=== PATIENT | female | born 1990 | race Caucasian/White ===

== ENCOUNTER 2022-07-03 05:02 | Inpatient (IN) | payer BC ==
[~2022-07-03 05:02] MED LIST: Sodium Chloride 0.9% 10 ML Syringe FLUSH PRN
[2022-07-03] MEDS: Lactated Ringers 1,000 ML IV SCH ×2 (05:45→06:38)
[2022-07-03] MEDS ORDERED: Citric Acid/Sodium Citrate Solution 30 ML Cup PO ONE (06:30)
[2022-07-03] MEDS ORDERED: Metoclopramide 10 MG/2 ML SDV IVPUSH ONE (06:30)
[2022-07-03] MEDS ORDERED: ceFAZolin 2 GM in Sodium Chloride 0.9% 50 ML IV ONE (07:00)
[2022-07-03] MEDS ORDERED: Oxytocin 10 Units/1 ML SDV ONE (07:08)
[2022-07-03] MEDS ORDERED: Morphine PF 1 MG/ML Amp ONE (07:08)
[2022-07-03] MEDS ORDERED: ePHEDrine 50 MG/ML SDV ONE (07:08)
[2022-07-03] MEDS ORDERED: Sodium Chloride 0.9% 50 ML SDV ONE (07:11)
[2022-07-03] MEDS ORDERED: Oxytocin/Lactated Ringers 10 UNIT/1,000 ML BAG IV SCH (07:30)
[2022-07-03] MEDS ORDERED: Phenylephrine 1% 10 MG/ML SDV ONE (07:39)
[2022-07-03] MEDS ORDERED: ceFAZolin 2 GM Vial ONE (07:44)
[2022-07-03] MEDS ORDERED: Ketorolac 30 MG/ML SDV ONE (08:06)
[2022-07-03] MEDS ORDERED: diphenhydrAMINE 50 MG/ML SDV IVPUSH PRN ×2 (08:12→10:40)
[2022-07-03] MEDS ORDERED: fentaNYL 100 MCG/2 ML SDV IVPUSH PRN (08:12)
[2022-07-03] MEDS ORDERED: Ondansetron 4 MG/2 ML SDV IVPUSH PRN (08:12)
[2022-07-03] MEDS ORDERED: Ondansetron 4 MG/2 ML SDV IV PRN (10:40)
[2022-07-03] MEDS ORDERED: Dextrose 5%-Lactated Ringers 1,000 ML IV SCH (10:40)
[2022-07-03] MEDS ORDERED: ePHEDrine 50 MG/ML SDV IVPUSH PRN (10:40)
[2022-07-03] MEDS ORDERED: Naloxone 0.4 MG/ML SDV IVPUSH PRN (10:40)
[2022-07-03] MEDS ORDERED: Docusate Sodium 100 MG Cap PO PRN (10:40)
[2022-07-03] MEDS: Pantoprazole 40 MG Tab.CR PO SCH (12:31)
[2022-07-03] MEDS: Prenatal Multivitamin with Calcium/Folic Acid/Iron Tab PO SCH (12:32)
[2022-07-03] MEDS: Ketorolac 30 MG/ML SDV IVPUSH SCH ×2 (14:20→20:44)
[2022-07-03] MEDS: Acetaminophen/oxyCODONE 325-5 MG Tab PO PRN (19:47)
[2022-07-04] MEDS: Acetaminophen/oxyCODONE 325-5 MG Tab PO PRN ×5 (00:06→20:03)
[2022-07-04] MEDS: Ketorolac 30 MG/ML SDV IVPUSH SCH (02:16)
[2022-07-04] MEDS: Prenatal Multivitamin with Calcium/Folic Acid/Iron Tab PO SCH (08:11)
[2022-07-04] MEDS: Pantoprazole 40 MG Tab.CR PO SCH ×2 (08:11→12:57)
[2022-07-04] MEDS: Ibuprofen 600 MG Tab PO PRN ×2 (10:14→18:33)
[2022-07-05] MEDS: Acetaminophen/oxyCODONE 325-5 MG Tab PO PRN ×2 (03:56→09:56)
[2022-07-05] MEDS: Ibuprofen 600 MG Tab PO PRN (06:57)
[2022-07-05] MEDS: Pantoprazole 40 MG Tab.CR PO SCH (09:58)
[2022-07-05] MEDS: Prenatal Multivitamin with Calcium/Folic Acid/Iron Tab PO SCH (09:58)
== END 2022-07-05 11:40 | disposition home or self-care (01) | DRG 540 ==
LOC: JD.OB 05:21
PROVIDERS: ADMIT Obstetrics & Gynecology; ATTEND Obstetrics & Gynecology
PROC: 10D00Z1 Extraction of Products of Conception, Low, Open Approach (ICD-10-PCS; principal; 2022-07-03)
DX: O34.211 Maternal care for low transverse scar from previous cesarean delivery (principal); O35.AXX0 Maternal care for other (suspected) fetal abnormality and damage, fetal facial anomalies, not applicable or unspecified; Z37.0 Single live birth; Z87.891 Personal history of nicotine dependence; Z88.8 Allergy status to other drugs, medicaments and biological substances; Z88.2 Allergy status to sulfonamides; Z3A.39 39 weeks gestation of pregnancy
CPT/HCPCS: 01961; 36415; 59025; 85025; 85027; 86592; 86850; 86900; 86901; 94762; A9270-GY; J0690; J1200; J1885; J2274; J2370; J2590; J2765; J3490; J7120